=== PATIENT | female | born 1970 | race Caucasian/White ===

== ENCOUNTER 2016-12-03 14:19 | Emergency (ER) | payer BC, OTHER ==
[2016-12-03 14:23] VITALS: BP 131/75; PULSE 85; TEMP 98.8; BMI 32.5
--- NOTE | 2016-12-03 14:51 | PDOC ---
History of Present Illness - General Chief Complaint: Pain, Acute Stated Complaint: Flank pain, radiating to Rt leg Time Seen by Provider: 12/03/16 14:50 History Source: Patient - History of Present Illness Initial Comments: 12/03/16 15:28 Patient is a 46 y.o. female with a PMH of nephrolithiasis who presents today c/ o R sided flank pain that radiates down her R posterior thigh. Patient notes she was evaluated at urgent care on Wednesday (11/30) and told she had a obstructing renal stone on the L side. Patient c/o increased urgency however no hematuria or dysuria. Patient denies any fevers, chills, abdominal pain. Past History - Past Medical History Allergies/Adverse Reactions: Allergies Allergy/AdvReac Type Severity Reaction Status Date / Time No Known Allergies Allergy Verified 12/03/16 14:23 Home Medications: Ambulatory Orders Oxycodone HCl/Acetaminophen [Percocet 5-325 mg Tablet] 1 tab PO Q6H PRN #16 tablet 04/27/12 Tamsulosin HCl 0.4 mg PO DAILY #14 cap.er.24h 04/27/12 Unknown Antibiotic 0 04/27/12 Other medical history: kidney stones - Suicide/Smoking/Psychosocial Hx Smoking Status: No Smoking History: Never smoked Number of Cigarettes Smoked Daily: 0 Information on smoking cessation initiated: No Hx Alcohol Use: No Drug/Substance Use Hx: No Substance Use Type: None Review of Systems - Review of Systems Constitutional: No: Chills, Fever HEENTM: No: Blurred Vision, Throat Pain Respiratory: No: Cough, Shortness of Breath Cardiac (ROS): No: Chest Pain, Edema ABD/GI: Yes: Nausea. No: Constipated, Diarrhea, Vomiting : Yes: Frequency. No: Burning, Dysuria All Other Systems: Reviewed and Negative *Physical Exam - Vital Signs Last Vital Signs Temp Pulse Resp BP Pulse Ox 98.8 F 85 18 131/75 99 12/03/16 14:22 12/03/16 14:22 12/03/16 14:22 12/03/16 14:22 12/03/16 14:22 - Physical Exam General Appearance: Yes: Nourished, Obese Neck: positive: Trachea midline, Supple Respiratory/Chest: positive: Lungs Clear, Normal Breath Sounds Cardiovascular: positive: Regular Rhythm, Regular Rate, S1, S2 Gastrointestinal/Abdominal: positive: Normal Bowel Sounds, Soft Musculoskeletal: positive: CVA Tenderness (R), CVA Tenderness (L) Extremity: positive: Normal Capillary Refill, Normal Inspection Neurologic: positive: Fully Oriented, Alert ED Treatment Course - LABORATORY CBC & Chemistry Diagram: 12/03/16 16:00 12/03/16 16:00 Medical Decision Making - Medical Decision Making 12/03/16 15:34 Patient is a 46 y.o. female who presents c/o R sided flank pain that radiates down her R posterior thigh. Initial DDx is sciatica vs. nephrolithiasis. PLAN: 1. CBC, CMP 2. UA 12/03/16 18:16 UA showed 3+ blood, leukocyte esterase (-), nitrite (-). Patient symptoms mildly improved s/p 1 L IVNS. CBC, CMP within normal limits. Patient's Urine ordered @ 1541, however not collected preventing patient from CT scan. Patient unwilling to wait for imaging left AMA with instruction to follow up with her PCP and urology. *DC/Admit/Observation/Transfer Diagnosis at time of Disposition: Flank pain - Discharge Dispostion Disposition: AGAINST MEDICAL ADVICE Condition at time of disposition: Unchanged/Unknown - Referrals Referrals: Dhaval Long MD [Staff Physician] - - Patient Instructions Printed Discharge Instructions: DI for Flank Pain Additional Instructions: Please call your primary for follow up. Please also follow up with urology.
[2016-12-03] MEDS ORDERED: SODIUM CHLORIDE 0.9% 1000 ML INFUS.BAG IV ONE (15:04)
[2016-12-03] MEDS ORDERED: KETOROLAC TROMETHAMINE 30 MG/1 ML VIAL IVPUSH ONE (15:41)
--- NOTE | 2016-12-03 15:56 | PDOC ---
Attending Attestation - HPI HPI: 12/03/16 16:08 Pt is a 46 yo F with a PMHx of Kidney stones who presents to the ED with R flank pain today. Patient reports flank pain associated with dysuria and nausea. Patient reports her pain radiates to her R leg however denies any numbness,tingling or weakness. Patient has been previously diagnosed with L kidney stones that ultimately passed on its own. Patient states her current pain is similar in nature to her kidney stones. - Physicial Exam PE: 12/03/16 16:09 GENERAL: Awake, alert, and fully oriented, in no acute distress HEAD: No signs of trauma EYES: PERRLA, EOMI, sclera anicteric, conjunctiva clear ENT: Auricles normal inspection, hearing grossly normal, nares patent, oropharynx clear without exudates. Moist mucosa NECK: Normal ROM, supple, no lymphadenopathy, JVD, or masses LUNGS: Breath sounds equal, clear to auscultation bilaterally. No wheezes, and no crackles HEART: Regular rate and rhythm, normal S1 and S2, no murmurs, rubs or gallops ABDOMEN: +R CVA tenderness. Soft, nontender, normoactive bowel sounds. No guarding, no rebound. No masses EXTREMITIES: Normal range of motion, no edema. No clubbing or cyanosis. No cords, erythema, or tenderness NEUROLOGICAL: Cranial nerves II through XII grossly intact. Normal speech, normal gait SKIN: Warm, Dry, normal turgor, no rashes or lesions noted. - Medical Decision Making 12/03/16 16:09 Documentation prepared by Divina Trejo, acting as nuclear medical technologist for Taryn Valdes DO <Divina Trejo - Last Filed: 12/03/16 16:08> - Resident Resident Name: Bozena Navarrete - ED Attending Attestation I have performed the following: I have examined & evaluated the patient, The case was reviewed & discussed with the resident, I agree w/resident's findings & plan, Exceptions are as noted - Medical Decision Making 12/03/16 17:59 Note: The patient insists on leaving the emergency dept and is signing out against medical advice. The patient understands the risks and complications that may result from the refusal of medical care and admission which includes and permanent disability. The patient has the mental capacity of understanding the risks of refusing care and is capable of making an informed decision. The patient was instructed to return to the emergency department should [] change [] mind regarding medical care or should [] condition worsen. The patient signed the Against Medical Advice form. 12/03/16 18:12 a/p: 46yo female with R flank pain, seen at urgent care and dx with L renal stone, in the kidney, still with R flank pain. No hematuria. Pt states nausea associated. Pain x 3 days. No vomiting or diarrhea. +urinary freq, no dysuria. no gross hematuria -concern for renal colic on R -labs -ua -ct abd/pelvis to r/o R uropathy -pain control -ivf hydration. 12/03/16 18:15 pt with blood in the urine, concern for renal colic pt states she wants to sign out AMA discussed need for imaging, pt states she no longer wants to wait for imaging. 12/03/16 18:15 pt understands all reasons to stay and still requests to sign out AMA. Will give referral to urology for follow up. <Taryn Valdes - Last Filed: 12/03/16 18:16> Discharge Disposition <Divina Trejo - Last Filed: 12/03/16 16:08> - Discharge Dispostion Admit: No <Taryn Valdes - Last Filed: 12/03/16 18:16> - Diagnosis Flank pain - Discharge Dispostion Disposition: AGAINST MEDICAL ADVICE Condition at time of disposition: Unchanged/Unknown - Referrals Referrals: Dhaval Long MD [Staff Physician] - - Patient Instructions Printed Discharge Instructions: DI for Flank Pain Additional Instructions: Please call your primary for follow up. Please also follow up with urology.
[2016-12-03] MEDS ORDERED: KETOROLAC TROMETHAMINE 30 MG/1 ML VIAL ONE (16:07)
[2016-12-03 16:16] LABS: BASOPHIL 0.7 % (0-2.0); EOSINOPHIL 1.9 % (0-4.5); MCH 29.6 pg (25.7-33.7); MCHC 33.4 g/dl (32.0-36.0); MEAN CELL VOLUME 88.5 fl (80-96); MEAN PLT VOLUME 8.4 fl (7.5-11.1); NEUTROPHILS 55.9 % (42.8-82.8); PLATELET COUNT 227 K/MM3 (134-434); RDW 13.6 % (11.6-15.6); WHITE BLOOD COUNT 5.5 K/mm3 (4.0-10.0)
[2016-12-03 16:20] LABS: URINE APPEARANCE CLEAR; URINE BILIRUBIN NEGATIVE (NEGATIVE); URINE BLOOD 2+ (NEGATIVE); URINE COLOR LTYELLOW; URINE GLUCOSE (UA) NEGATIVE (NEGATIVE); URINE KETONE NEGATIVE (NEGATIVE); URINE NITRITE NEGATIVE (NEGATIVE); URINE PROTEIN NEGATIVE (NEGATIVE); URINE UROBILINOGEN NEGATIVE mg/dL (0.2-1.0)
[2016-12-03 16:34] LABS: ALBUMIN 3.9 g/dl (3.4-5.0); ALK PHOS 65 U/L (45-117); ANION GAP 6 (8-16); BILIRUBIN,TOTAL 0.3 mg/dL (0.2-1.0); CALCIUM 9.1 mg/dL (8.5-10.1); CO2 28 mmol/L (21-32); CREATININE 0.8 mg/dL (0.55-1.02); GLUCOSE,RANDOM 90 mg/dL (74-106); SGPT/ALT 17 U/L (12-78); TOT PROT 7.3 g/dl (6.4-8.2)
[2016-12-03 16:35] LABS: SGOT/AST 18 U/L (15-37)
[2016-12-03 19:09] LABS: URINE LEUK ESTERASE Negative (NEGATIVE)
== END 2016-12-03 18:25 | disposition left against medical advice (07) ==
LOC: JER 14:19
PROC: 3E0333Z Introduction of Anti-inflammatory into Peripheral Vein, Percutaneous Approach (ICD-10-PCS; principal; 2016-12-03)
PROC: 3E0337Z Introduction of Electrolytic and Water Balance Substance into Peripheral Vein, Percutaneous Approach (ICD-10-PCS; 2016-12-03)
DX: R10.31 Right lower quadrant pain (principal)
CPT/HCPCS: 36415; 80053; 81003; 81015; 84703; 85025; 99282-25

== ENCOUNTER 2019-09-20 04:43 | Day surgery (SDC) | payer BC, OTHER ==
[2019-09-19 12:56] VITALS: BMI 34.1
[2019-09-20] MEDS ORDERED: ACETAMINOPHEN 325 MG TABLET (FP) PO PRN (10:29)
[2019-09-20] MEDS ORDERED: IBUPROFEN 400 MG TABLET (FP) PO PRN (10:29)
[2019-09-20] MEDS ORDERED: oxyCODONE HCL 5 MG TABLET PO PRN (10:29)
--- NOTE | 2019-09-20 10:29 | HP ---
Admitting History and Physical - Admission History of Present Illness: 49 yo with new onset heavier menses x 3-4 months s/p ultrasound suspicious for polyp Desires surgical management History Source: Patient Limitations to Obtaining History: No Limitations - Past Medical History Cardiovascular: No: HTN Pulmonary: No: Asthma Gastrointestinal: Yes: GERD Renal/: Yes: Renal Calculi ...LMP: 09/05/19 - Past Surgical History Additional Past Surgical History: Gastroscopy Nose surgery - Smoking History Smoking history: Never smoked Aproximately how many cigarettes per day: 0 - Alcohol/Substance Use Hx Alcohol Use: No History of Substance Use: reports: None Home Medications - Allergies Allergies/Adverse Reactions: Allergies Allergy/AdvReac Type Severity Reaction Status Date / Time amoxicillin [From Augmentin] AdvReac Severe Verified 09/20/19 11:08 clavulanic acid AdvReac Severe Verified 09/20/19 10:57 [From Augmentin] - Home Medications Home Medications: Ambulatory Orders Fluticasone Prop 0.05% Nasal [Flonase -] 1 - 2 spray NS PRN 09/19/19 Family Medical History Family History: Denies Review of Systems - Review of Systems Constitutional: reports: No Symptoms Cardiovascular: reports: No Symptoms Respiratory: reports: No Symptoms Gastrointestinal: reports: No Symptoms Genitourinary: reports: No Symptoms Physical Examination Constitutional: Yes: Well Nourished, No Distress, Calm Cardiovascular: Yes: Regular Rate and Rhythm Respiratory: Yes: Regular, CTA Bilaterally Gastrointestinal: Yes: Normal Bowel Sounds Psychiatric: Yes: Alert, Oriented Assessment/Plan 49 yo with menorrhagia, endometrial polyp for hysteroscopy, D&C, polypectomy 1. Consents reviewed and signed. Discussed risks including but not limited to infection, bleeding, uterine perforation, damage to surrounding organs. Reviewed unknown risks arising in Covid Pandemic. 2. Routine labs reviewed 3. SCDs for DVT prophylaxis 4. Antibiotics not indicated 5. Will proceed to OR
[2019-09-20] MEDS ORDERED: MIDAZOLAM HCL 2 MG/2 ML SINGLE DOSE VIAL ONE (11:22)
[2019-09-20] MEDS ORDERED: PROPOFOL 20 ML ONE (11:22)
[2019-09-20] MEDS ORDERED: LIDOCAINE HCL/PF 2% SDV 5ML VIAL ONE (11:22)
[2019-09-20] MEDS ORDERED: DEXAMETHASONE SOD PHOSPHATE 4 MG/1 ML VIAL ONE (11:41)
--- NOTE | 2019-09-20 12:18 | OP ---
Operative Note - Note: Operative Date: 09/20/19 Pre-Operative Diagnosis: menorrhagia, endometrial polyp Operation: hysteroscopy, dilation and curettage, polypectomy using symphion Findings: bilateral ostia visualized, polyp tisuse noted at 12 o'clock Post-Operative Diagnosis: Same as Pre-op Pulp Making Plant Operator: Otilia Lai Anesthesiologist/FABRICATION SUPERVISOR: Ny Hoover Anesthesia: General Specimens Removed: endometrial curetting Estimated Blood Loss (mls): 5 Drains, Volume Out (mls): 400 (fluid deficit) Fluid Volume Replaced (mls): 500 Operative Report Dictated: Yes
[2019-09-20] MEDS ORDERED: ONDANSETRON 4 MG/2 ML VIAL IVPUSH PRN (12:26)
[2019-09-20] MEDS ORDERED: LACTATED RINGERS SOLUTION 1,000 ML IV SCH (12:30)
[2019-09-20] MEDS ORDERED: oxyCODONE HCL 5 MG TABLET ONE (13:48)
[2019-09-20] MEDS ORDERED: ACETAMINOPHEN 325 MG TABLET (FP) PO ONE (14:31)
[2019-09-20] MEDS ORDERED: ACETAMINOPHEN 325 MG TABLET (FP) ONE (14:33)
[2019-09-20 15:00] VITALS: BP 122/71; PULSE 92; TEMP 97.5
--- NOTE | 2019-09-21 11:49 | OP ---
DATE OF OPERATION: 09/21/2019 PREOPERATIVE DIAGNOSIS: Menorrhagia and endometrial polyp. POSTOPERATIVE DIAGNOSIS: Menorrhagia and endometrial polyp. SURGERY: Hysteroscopy, dilatation and curettage and polypectomy using a Symphion. SURGEON: Ramya Lai MD ANESTHESIOLOGIST: Ny Hoover MD INTRAVENOUS FLUIDS: 500 FLUID DEFICIT: 400 ESTIMATED BLOOD LOSS: 5 INDICATION: Patient is a 49-year-old with new-onset menorrhagia and ultrasound suspicious for endometrial polyp. She was counseled regarding observation versus surgical management. She opted for surgical management. Risks, benefits, alternatives and complications of the procedure were discussed including infection, bleeding, damage to surrounding organs such as bowel, bladder, uterine perforation. Also discussed unknown risks given surgery during the COVID pandemic. She expressed understanding and was brought to the operating room. PROCEDURE IN DETAIL: When anesthesia was found to be adequate, the patient was prepped and draped in normal sterile fashion and placed in the dorsal lithotomy position using Valeriy stirrups. A weighted speculum was placed in the posterior vagina. Anterior vagina was retracted using a Collins retractor. An Allis clamp was used to grasp the anterior lip of the cervix. The cervix was dilated to a size 23 Urban dilator. The Symphion hysteroscope was placed in the endometrial cavity. Visualization of bilateral ostia were identified. Sessile polyps at 12 o'clock and 6 o'clock were noted. Symphion was deployed and used to remove portions of the polyp. All instruments were removed from the patient's vagina and gentle sharp curetting was performed. Good hemostasis was noted. All instruments were removed from the patient's vagina. The patient was awoken from anesthesia and taken to the recovery room in stable condition. RAMYA LAI M.D. [id number]
--- NOTE | 2019-09-21 19:04 | PATH ---
Surgical Pathology Report Patient Name: KADEN RÍOS [facility]. Rec. #: [id number] /Age/Gender: 1970 (Age: 49) / F Account: [id number] Location: [facility] Taken: 09/20/2019 Received: 09/20/2019 Reported: 09/21/2019 Physicians: Otilia Lai Specimen(s) Received ENDOMETRIAL CURETTINGS Clinical History Endometrial polyp Final Diagnosis ENDOMETRIAL CURETTINGS, POLYPECTOMY, DILATION AND CURETTAGE: FRAGMENTS OF ENDOMETRIAL POLYP, PROLIFERATIVE ENDOMETRIUM, AND BENIGN CERVICAL TISSUE WITH FOCAL SQUAMOUS METAPLASIA. Electronically Signed Taty Cho M.D. Gross Description Received in formalin labeled "endometrial curettings," is a 3.6 x 2.5 x 0.3 cm aggregate of ramirez-red soft tissue fragments admixed with blood clot. The formalin is filtered and the specimen is entirely submitted in 2 cassettes. /09/20/2019 saudi/09/20/2019
== END 2019-09-20 15:10 | disposition home or self-care (01) ==
LOC: JASU-SURG 04:43
PROVIDERS: ATTEND Obstetrics & Gynecology
PROC: 0UJD8ZZ Inspection of Uterus and Cervix, Via Natural or Artificial Opening Endoscopic (ICD-10-PCS; 2019-09-20)
PROC: 0UB97ZX Excision of Uterus, Via Natural or Artificial Opening, Diagnostic (ICD-10-PCS; principal; 2019-09-20 11:00)
PROC: 0UDB7ZX Extraction of Endometrium, Via Natural or Artificial Opening, Diagnostic (ICD-10-PCS; 2019-09-20 11:00)
DX: N92.0 Excessive and frequent menstruation with regular cycle (principal); N84.0 Polyp of corpus uteri
CPT/HCPCS: 36415; 84703; 86850; 86900; 86901; 88305-TC; 94760